=== PATIENT | male | born 1950 | race Caucasian/White ===

== ENCOUNTER → 2016-08-05 | Outpatient (CLI) | payer MEDICARE, OTHER ==
[~2016-08-05] MED LIST: AMLO5TAB2 PO; ASPI81TA11 PO; BENA20TA PO; FINA5TAB2 PO; HYDR-3516 PO; HYDR-3533 PO; LIPI40TA PO; POTA-245 PO; TAMS0.4C4 PO; TRIA37.53 PO
[2016-08-05 15:44] LABS: AUTOMATED NEUTROPHIL # 2.8 TH/MM3 (1.8-7.7); BASOPHIL % 0.9 % (0.0-2.0); EOSINOPHIL # 0.1 TH/MM3 (0-0.4); HEMATOCRIT 44.9 % (39.0-51.0); HEMO FLAGS DIFF FINAL; LYMPH % 23.5 % (9.0-44.0); LYMPHOCYTE # 1.1 TH/MM3 (1.0-4.8); MEAN CELL VOLUME 84.6 FL (80.0-100.0); MEAN CORPUSCULAR HEMOGLOBIN 28.7 PG (27.0-34.0); MONO % 14.5 % (0.0-8.0); NEUT % 59.1 % (16.0-70.0); PLATELET COUNT 209 TH/MM3 (150-450); RED BLOOD COUNT 5.31 MIL/MM3 (4.50-5.90); RED CELL DISTRIBUTION WIDTH 14.1 % (11.6-17.2); WHITE BLOOD COUNT 4.7 TH/MM3 (4.0-11.0)
[2016-08-05 15:49] LABS: BICARBONATE 32.5 MEQ/L (21.0-32.0); POTASSIUM 3.7 MEQ/L (3.5-5.1)
== END ==
LOC: PLAB 11:07
DX: R53.83 Other fatigue (principal)
CPT/HCPCS: 36415; 80048; 85025

== ENCOUNTER 2016-09-20 22:21 | Observation (INO) | payer MEDICARE, OTHER ==
[~2016-09-20] VITALS: Ht 180.3 cm; Wt 95.0 kg
[2016-09-20 22:24] VITALS: BP 183/85; PULSE 62; RESP 16; TEMP 98.1; O2SAT 95
--- NOTE | 2016-09-20 22:43 | RADRPT ---
EXAM DATE/TIME: 09/20/2016 22:35 [place] COMPARISON: No previous studies available for comparison. INDICATIONS : Chest pain. MEDICAL HISTORY : None. SURGICAL HISTORY : None. ENCOUNTER: Initial ACUITY: 1 day PAIN SCORE: 3/10 LOCATION: Bilateral chest FINDINGS: There is trace left base atelectasis. Lungs are otherwise clear. No pleural effusion. No pneumothorax . Heart size within normal limits. Thoracic aorta is tortuous. CONCLUSION: Trace left base atelectasis. Agustin Parra MD on September 20, 2016 at 22:41 Board Certified Radiologist. This report was verified electronically.
[2016-09-20 23:10] LABS: AUTOMATED NEUTROPHIL # 2.8 TH/MM3 (1.8-7.7); BASOPHIL # 0.1 TH/MM3 (0-0.2); BASOPHIL % 1.2 % (0.0-2.0); EOSINOPHIL # 0.2 TH/MM3 (0-0.4); EOSINOPHIL % 3.2 % (0.0-4.0); HEMATOCRIT 43.2 % (39.0-51.0); HEMO FLAGS DIFF FINAL; LYMPH % 31.8 % (9.0-44.0); LYMPHOCYTE # 1.8 TH/MM3 (1.0-4.8); MEAN CELL VOLUME 83.7 FL (80.0-100.0); MEAN CORPUSCULAR HEMOGLOBIN 28.9 PG (27.0-34.0); MEAN CORPUSCULAR HGB CONC 34.5 % (32.0-36.0); NEUT % 47.8 % (16.0-70.0); PLATELET COUNT 215 TH/MM3 (150-450); RED BLOOD COUNT 5.15 MIL/MM3 (4.50-5.90); RED CELL DISTRIBUTION WIDTH 13.7 % (11.6-17.2); WHITE BLOOD COUNT 5.8 TH/MM3 (4.0-11.0)
[2016-09-20] MEDS ORDERED: TAMS0.4C4 PO (23:21)
[2016-09-20] MEDS ORDERED: BENA20TA PO (23:21)
[2016-09-20] MEDS ORDERED: AMLO5TAB2 PO (23:21)
[2016-09-20] MEDS ORDERED: FINA5TAB2 PO (23:21)
[2016-09-20] MEDS ORDERED: TRIA37.53 PO (23:21)
[2016-09-20] MEDS ORDERED: POTA-245 PO (23:21)
[2016-09-20 23:24] LABS: CREATINE KINASE 122 U/L (39-308)
[2016-09-20 23:26] LABS: ANION GAP 8 MEQ/L (5-15); BICARBONATE 29.8 MEQ/L (21.0-32.0); BLOOD UREA NITROGEN 16 MG/DL (7-18); CHLORIDE 104 MEQ/L (98-107); GLOMERULAR FILTRATION RATE 73 ML/MIN (>89); POTASSIUM 3.3 MEQ/L (3.5-5.1); SODIUM (NA) 142 MEQ/L (136-145)
[2016-09-20 23:36] LABS: CKMB 1.5 NG/ML (0.5-3.6)
[2016-09-21] VITALS (7 sets, daily range): BP systolic 107–144; BP diastolic 60–84; PULSE 49–92; RESP 18–20; TEMP 97.4–98.1; O2SAT 96–98
--- NOTE | 2016-09-21 01:11 | PD ---
HPI Chief Complaint: Chest Pain Time Seen by Provider: 23:29 Travel History International Travel<30 days: No Contact w/Intl Traveler<30days: No Traveled to known affect area: No History of Present Illness HPI The patient is a 66 year old male who presents to the [facility] emergency department with a history of 7-10 days of generalized weakness, fatigue, shortness of breath with exertion, chest pressure. The patient reports that the pressure is all across his chest and 2 days ago he had more of a sharp pain in the left side of his chest. He reports that he is normally quite active and thought that it may be a muscle strain, therefore he applied ice to the area. This sharp pain resolved, however the pressure has continued. He reports that he's had intermittent lightheaded sensation with variability of his blood pressure when he checks it at home. He reports that he is on blood pressure medications. The patient also has a history of hypokalemia and generalized weakness associated with this, however he is on a potassium supplement. The patient reports that he's had a mild headache across his forehead, however he denies any nasal discharge, congestion, cough, rhinorrhea, or sore throat. The patient reports that he had a negative heart catheter for coronary artery disease in 2006, however he did have a pulmonary embolism related to the procedure. He did have an inferior vena cava ulcer placed because of it. The patient denies having a local primary care physician. The patient reports that he has been moving his bowels regularly. The patient denies any recent fevers, neck pain, abdominal pain, vomiting, diarrhea, urinary symptoms, or neurologic symptoms. [facility] Past Medical History Narrative Medical The patient's past medical history is significant for hypertension, hypokalemia , vitamin D deficiency, history of prostate cancer, history of bladder cancer in remission, history of pulmonary embolism after heart catheterization in 2006. Hx Anticoagulant Therapy: Yes (ASA) Cancer: Yes (BLADDER) Cardiovascular Problems: Yes (CATH>2006) Chemotherapy: Yes Hypertension: Yes Inguinal Hernia: Yes (WITH MESH) Tetanus Vaccination: > 5 Years Influenza Vaccination: No Past Surgical History Narrative Surgical The patient's past surgical history is significant for an inguinal hernia, cardiac cath complicated by subsequent pulmonary embolism, history of inferior vena cava filter placement, history of an appendectomy. The patient has a history of bladder cancer resection. Appendectomy: Yes Other Surgery: Yes (IVC FILTER ) Social History Alcohol Use: No Tobacco Use: No Substance Use: No Allergies-Medications (Allergen,Severity, Reaction): Coded Allergies: No Known Allergies (Unverified , 09/20/16) Reported Meds & Prescriptions Reported Meds & Active Scripts Active Reported Klor-Con M20 (Potassium Chloride Microencaps) 20 Meq Tab 20 Meq PO Q12HR Finasteride 5 Mg Tab 5 Mg PO DAILY Do not crush. Tamsulosin (Tamsulosin HCl) 0.4 Mg Cap 0.4 Mg PO HS Triamterene-Hydrochlorothiazide 37.5-25 Mg Cap 1 Cap PO DAILY Benazepril (Benazepril HCl) 20 Mg Tab 20 Mg PO DAILY Amlodipine (Amlodipine Besylate) 5 Mg Tab 5 Mg PO DAILY Review of Systems Except as stated in HPI: all other systems reviewed are Neg General / Constitutional: No: Fever Eyes: No: Visual changes HENT: Positive: Headaches, Lightheadedness Cardiovascular: Positive: Chest Pain or Discomfort, Dyspnea on exertion Respiratory: Positive: Shortness of Breath Gastrointestinal: Positive: Nausea, No: Vomiting, Diarrhea, Abdominal Pain, Constipation, Changes in Bowel Habits, Indigestion, Loss of Appetite Genitourinary: No: Dysuria Musculoskeletal: No: Pain Skin: No Rash Neurologic: Positive: Weakness (generalized weakness), Headache, No: Focal Abnormalities, Coordination Problem, Change in Mentation, Slurred Speech, Sensory Disturbance Psychiatric: No: Depression Endocrine: No: Polydipsia Hematologic/Lymphatic: No: Easy Bruising Physical Exam Narrative General: The patient is a well-developed well-nourished male in no acute distress. Head and Neck exam: Head is normocephalic atraumatic. Eyes: Pupils are equal round and reactive to light. Nose: Midline septum with pink mucous membranes Mouth: Dentition unremarkable. Moist mucus membranes. Posterior oropharynx is not erythematous. No tonsillar hypertrophy. Uvula midline. Airway patent. Neck: No palpable lymphadenopathy. No nuchal rigidity. No thyromegaly. Cardiovascular: Regular sounding bradycardia in the 40s without murmurs, gallops, or rubs. No pulse deficit to the extremities and simultaneous auscultation and palpation of his radial artery. Lungs: Clear to auscultation bilaterally. No wheezes, rhonchi, or rales. Abdomen: Soft, without tenderness to palpation in all 4 quadrants of the abdomen. No guarding, rebound, or rigidity. Normal bowel sounds are audible. Extremities: No clubbing, cyanosis, or edema. 2+ pulses in all 4 extremities. No calf tenderness on palpation. Back: No spinous process tenderness to palpation. No costovertebral angle tenderness to palpation. Neurologic Exam: Grossly nonfocal. Skin Exam: No rash noted. Intact skin that is warm and dry. Data Data Last Documented VS Vital Signs Date Time Temp Pulse Resp B/P Pulse Ox O2 Delivery O2 Flow Rate FiO2 09/21/16 01:34 82 18 144/75 98 Room Air 09/20/16 22:24 98.1 Orders Electrocardiogram (09/20/16 22:23) Complete Blood Count With Diff (09/20/16 22:23) Basic Metabolic Panel (Bmp) (09/20/16 22:23) Ckmb (Isoenzyme) Profile (09/20/16 22:23) Troponin I (09/20/16 22:23) Chest, Single Ap (09/20/16 22:23) Iv Access Insert/Monitor (09/20/16 22:23) CKMB (09/20/16 22:50) CKMB% (09/20/16 22:50) Potassium Chloride Eff (K-Lyte Cl Eff) (09/21/16 01:15) Aspirin Chew (Aspirin Chew) (09/21/16 01:15) Nitroglycerin 2% Oint (Nitroglycerin 2% (09/21/16 01:15) Nitroglycerin Sl (Nitrostat Sl) (09/21/16 01:15) B-Type Natriuretic Peptide (09/21/16 01:15) Hepatic Functional Panel (09/21/16 01:15) Lipase (09/21/16 01:15) D-Dimer (09/21/16 01:15) Magnesium (Mg) (09/21/16 01:15) Sodium Chlorid 0.9% 500 Ml Inj (Ns 500 M (09/21/16 01:15) Amlodipine (Norvasc) (09/21/16 09:00) Lisinopril (Prinivil) (09/21/16 09:00) Finasteride (Proscar) (09/21/16 09:00) Potassium Chloride (Kcl) (09/21/16 09:00) Tamsulosin (Flomax) (09/21/16 21:00) Triamterene-Hctz 37.5-25 Mg (Dyazide 37. (09/21/16 09:00) Admit Order (Ed Use Only) (09/21/16 01:37) Place In Observation (09/21/16 ) Vital Signs (Adult) Q4H (09/21/16 01:37) Activity Oob With Assistance (09/21/16 01:37) Cinder Man / Telemetry .CONTINUOUS (09/21/16 01:37) Sodium Chloride 0.9% Flush (Ns Flush) (09/21/16 01:45) Sodium Chloride 0.9% Flush (Ns Flush) (09/21/16 09:00) Creatine Kinase (Cpk) (09/21/16 05:00) Creatine Kinase (Cpk) (09/21/16 11:00) Troponin I (09/21/16 05:00) Troponin I (09/21/16 11:00) Electrocardiogram (09/21/16 05:00) Electrocardiogram (09/21/16 11:00) Naloxone Inj (Narcan Inj) (09/21/16 01:45) Labs Laboratory Tests Test 09/20/16 09/21/16 22:50 01:20 White Blood Count 5.8 TH/MM3 Red Blood Count 5.15 MIL/MM3 Hemoglobin 14.9 GM/DL Hematocrit 43.2 % Mean Corpuscular Volume 83.7 FL Mean Corpuscular Hemoglobin 28.9 PG Mean Corpuscular Hemoglobin 34.5 % Concent Red Cell Distribution Width 13.7 % Platelet Count 215 TH/MM3 Mean Platelet Volume 8.2 FL Neutrophils (%) (Auto) 47.8 % Lymphocytes (%) (Auto) 31.8 % Monocytes (%) (Auto) 16.0 % Eosinophils (%) (Auto) 3.2 % Basophils (%) (Auto) 1.2 % Neutrophils # (Auto) 2.8 TH/MM3 Lymphocytes # (Auto) 1.8 TH/MM3 Monocytes # (Auto) 0.9 TH/MM3 Eosinophils # (Auto) 0.2 TH/MM3 Basophils # (Auto) 0.1 TH/MM3 CBC Comment DIFF FINAL Differential Comment Sodium Level 142 MEQ/L Potassium Level 3.3 MEQ/L Chloride Level 104 MEQ/L Carbon Dioxide Level 29.8 MEQ/L Anion Gap 8 MEQ/L Blood Urea Nitrogen 16 MG/DL Creatinine 1.02 MG/DL Estimat Glomerular Filtration 73 ML/MIN Rate Random Glucose 100 MG/DL Calcium Level 8.5 MG/DL Total Creatine Kinase 122 U/L Creatine Kinase MB 1.5 NG/ML Troponin I LESS THAN 0.02 NG/ML D-Dimer Quantitative (PE/DVT) 0.33 MG/L FEU Magnesium Level 2.0 MG/DL Total Bilirubin 1.0 MG/DL Direct Bilirubin 0.3 MG/DL Indirect Bilirubin 0.7 MG/DL Aspartate Amino Transf 15 U/L (AST/SGOT) Alanine Aminotransferase 25 U/L (ALT/SGPT) Alkaline Phosphatase 50 U/L B-Type Natriuretic Peptide 26 PG/ML Total Protein 6.3 GM/DL Albumin 3.5 GM/DL Lipase 196 U/L MDM Medical Decision Making Medical Screen Exam Complete: Yes Emergency Medical Condition: Yes Medical Record Reviewed: Yes Interpretation(s) Vital Signs Date Time Temp Pulse Resp B/P Pulse Ox O2 Delivery O2 Flow Rate FiO2 09/21/16 01:34 82 18 144/75 98 Room Air 09/20/16 23:24 84 Room Air 09/20/16 22:24 98.1 62 16 183/85 95 Differential Diagnosis Sick sinus syndrome, versus electrolyte abnormality, versus acute coronary syndrome, versus viral syndrome, versus new-onset congestive heart failure Narrative Course During the course of the patients emergency department visit, the patients history, examination, and differential diagnosis were reviewed with the patient. The patient had IV access obtained and blood work sent for analysis. The patient was placed on a rn cardiac with oximetry and blood pressure monitoring. An EKG was done on arrival. The patient's EKG shows a sinus rhythm , borderline left axis deviation, moderate intraventricular conduction delay with a QRS duration of 112 ms, QTC 409 ms, no acute ST segment elevation is noted, no acute ST segment depression. The patient was provided 162 mg of aspirin by mouth. The patient was given sublingual nitroglycerin 1, nitroglycerin 1 inch the chest wall. The patients laboratory studies were reviewed and remarkable for a d-dimer that was negative, decreasing the likelihood of pulmonary embolism in this patient with no other significant risk factors. CBC is remarkable for a monocytosis, CMP is remarkable for potassium of 3.3, lipase 196, cardiac enzymes negative, PT PTT unremarkable. Radiology studies were reviewed and remarkable for a chest x-ray that shows no acute abnormality. The patient will be admitted to the hospital for continued evaluation and treatment of suspected symptomatic bradycardia and chest pain rule out myocardial infarction The patients results were discussed with the patient, including the plan of care. I explained that further testing and/ or monitoring is indicated based on the patients history, examination, and/ or laboratory findings. Therefore, I recommended admission for additional evaluation. The patient expressed understanding and was agreeable with this plan. The patient was admitted to the hospital in stable condition and [facility] Physician Communication Physician Communication The patient's case was discussed with Dr. Carreno who did agree to admit the patient for further evaluation and treatment at this time Diagnosis Primary Impression: Bradycardia Additional Impressions: Light headedness Chest pain, rule out acute myocardial infarction Admitting Information Admitting Physician Requests: Admit Elen Phoenix MD Sep 21, 2016 01:11
[2016-09-21] MEDS ORDERED: POTASSIUM CHLORIDE 25 MEQ EFFERVESCENT TAB PO ONE (01:15)
[2016-09-21] MEDS ORDERED: NITROGLYCERIN 2% OINT 1 GM PACKET TOPICAL ONE (01:15)
[2016-09-21] MEDS ORDERED: NITROGLYCERIN 0.4 MG SL 25 TABS/BTL SL ONE (01:15)
[2016-09-21] MEDS ORDERED: SODIUM CHLORID 0.9% 500 ML INJ 500 ML IV ONE (01:15)
[2016-09-21] MEDS ORDERED: ASPIRIN 81 MG CHEW TAB CHEW ONE (01:15)
[2016-09-21] MEDS ORDERED: NALOXONE HCL 0.4 MG/ML AMP IV PRN (01:45)
[2016-09-21] MEDS ORDERED: SODIUM CHLORIDE 0.9% FLUSH 5 ML FLUSH FLUSH PRN (01:45)
[2016-09-21 01:57] LABS: INDIRECT BILIRUBIN 0.7 MG/DL (0.0-0.8)
[2016-09-21 05:41] LABS: CREATINE KINASE 78 U/L (39-308)
--- NOTE | 2016-09-21 07:56 | HHI.HP ---
HPI Service [facility] Primary Care Physician Non-Staff Admission Diagnosis Bradycardia, CP RO MT Diagnoses: Chief Complaint: fatigue, chest pain, shortness of breath Travel History International Travel<30 Days: No Contact w/Intl Traveler <30 Da: No Traveled to Known Affected Are: No History of Present Illness 66-year-old male with history of Hypertension, Hypokalemia, Vitamin D Deficiency , Prostate Cancer, Bladder Cancer in remission, Pulmonary Embolism 2006, presents with a 7-10 day history of generalized weakness, fatigue, shortness of breath, dyspnea on exertion, and chest pressure. The patient's main complaint is feeling fatigued [id number] now. He has been taking his blood pressure at home which has been significantly elevated at times; he states his normal BP is around 130s/80s. He's also been having episodes of chest pain described as a tight band across his anterior chest with occasional sharp pains, he is not the best historian. He has been icing his chest, and had some mild relief of his pains. He also reports "flashes" of lightheadedness, nausea, and mild intermittent headaches; not always associated with the chest pains. Denies vomiting or diaphoresis. He also reports shortness of breath, states he has no problems with deep inspiration however feels he is just not getting enough air. Yesterday when the patient would walk only 50feet, he felt very fatigued and had to sit down to rest. 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 Since his arrival to the ER, he has been given aspirin 162mg and nitro with moderate relief of his symptoms. Denies any current chest pains. He has been bradycardic on telemetry, HR into the upper 30s -40s. The patient does not take any beta blockers. The patient had a cardiac catheterization done in [place] 10years ago which was reportedly normal, no CAD, however he then developed a pulmonary embolism post cath and was on Coumadin for 6months. Review of Systems Constitutional: COMPLAINS OF: Fatigue, DENIES: Diaphoretic episodes, Fever, Chills, Dizziness Endocrine: DENIES: Polydipsia, Polyuria, Polyphagia Eyes: DENIES: Blurred vision, Diplopia, Double Vision Ears, nose, mouth, throat: DENIES: Throat pain, Running Nose, Odynophagia Respiratory: COMPLAINS OF: Shortness of breath, DENIES: Cough, Wheezing, Sputum production Cardiovascular: COMPLAINS OF: Chest pain, Dyspnea on Exertion, DENIES: Palpitations, Syncope, Lower Extremity Edema, Orthopnea Gastrointestinal: COMPLAINS OF: Nausea, DENIES: Abdominal pain, Constipation, Diarrhea, Vomiting Genitourinary: DENIES: Urinary frequency, Urgency, Dysuria Musculoskeletal: DENIES: Joint pain, Back pain, Neck pain Integumentary: DENIES: Pruritus, Rash Hematologic/lymphatic: DENIES: Bruising, Lymphadenopathy Immunologic/allergic: DENIES: Eczema, Urticaria Neurologic: COMPLAINS OF: Headache, DENIES: Abnormal gait, Localized weakness , Paresthesias Psychiatric: DENIES: Anxiety, Depression Past Family Social History Past Medical History Hypertension Hypokalemia Vitamin D Deficiency Prostate Cancer Bladder Cancer in remission Pulmonary Embolism after heart cath 2006 Past Surgical History Hernia repair with mesh IVC filter placement 2006 Appendectomy Bladder cancer resection Left ear surgery 50years ago Reported Medications Klor-Con M20 (Potassium Chloride Microencaps) 20 Meq Tab 20 Meq PO Q12HR Finasteride 5 Mg Tab 5 Mg PO DAILY Do not crush. Tamsulosin (Tamsulosin HCl) 0.4 Mg Cap 0.4 Mg PO HS Triamterene-Hydrochlorothiazide 37.5-25 Mg Cap 1 Cap PO DAILY Benazepril (Benazepril HCl) 20 Mg Tab 20 Mg PO DAILY Amlodipine (Amlodipine Besylate) 5 Mg Tab 5 Mg PO DAILY Aspirin 81mg daily Occasional use of OTC Motrin, Aleve, Full strength aspirin, for pain relief Allergies: Coded Allergies: No Known Allergies (Unverified , 09/20/16) Active Ordered Medications Current Medications Medications (Trade) Dose Ordered Sig/Silvia Route Start Time Stop Time Status Last Admin (Norvasc) 5 mg DAILY PO 09/21/16 09:00 (Prinivil) 20 mg DAILY PO 09/21/16 09:00 (Proscar) 5 mg DAILY PO 09/21/16 09:00 (KCl) 20 meq Q12HR PO 09/21/16 09:00 (Flomax) 0.4 mg HS PO 09/21/16 21:00 (Dyazide 37.5-25 Mg) 1 cap DAILY PO 09/21/16 09:00 (NS Flush) 2 ml UNSCH PRN FLUSH 09/21/16 01:45 (NS Flush) 2 ml BID FLUSH 09/21/16 09:00 (Narcan Inj) 0.4 mg UNSCH PRN IV 09/21/16 01:45 (Flu (Quadrivalent) Vaccine Inj) 0.5 ml ONCE ONCE IM 09/22/16 09:00 09/22/16 09:01 Family History Mother with CHF Father with stroke Both parents in the 90s Social History Denies any tobacco use Social drinker, maybe 2 alcoholic beverages a month 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 Physical Exam Vital Signs Vital Signs Date Time Temp Pulse Resp B/P Pulse Ox O2 Delivery O2 Flow Rate FiO2 09/21/16 05:35 98.1 92 20 136/75 96 09/21/16 03:49 49 09/21/16 01:34 82 18 144/75 98 Room Air 09/20/16 23:24 84 Room Air 09/20/16 22:24 98.1 62 16 183/85 95 Physical Exam GENERAL: Well-nourished, well-developed pleasant male patient in [facility]. SKIN: Warm and dry. No rash. HEAD: Normocephalic. Atraumatic. EYES: Pupils equal and round. No scleral icterus. No injection or drainage. ENT: No nasal bleeding or discharge. Mucous membranes pink and moist. NECK: Supple. Trachea midline. CARDIOVASCULAR: Bradycardic, Regular rhythm. S1, S2 noted. No murmur appreciated. RESPIRATORY: No accessory muscle use. Clear to auscultation. Breath sounds equal bilaterally. GASTROINTESTINAL: Abdomen soft, non-tender, nondistended. Normoactive bowel sounds x4. MUSCULOSKELETAL: No obvious deformities. Extremities without clubbing, cyanosis , or edema. NEUROLOGICAL: Awake and alert. No obvious cranial nerve deficits. Motor grossly within normal limits. 5/5 muscle strength in bilateral upper and lower extremities. Normal speech. PSYCHIATRIC: Appropriate mood and affect; insight and judgment normal. Laboratory Laboratory Tests Test 09/20/16 09/21/16 09/21/16 22:50 01:20 04:52 White Blood Count 5.8 Red Blood Count 5.15 Hemoglobin 14.9 Hematocrit 43.2 Mean Corpuscular Volume 83.7 Mean Corpuscular Hemoglobin 28.9 Mean Corpuscular Hemoglobin 34.5 Concent Red Cell Distribution Width 13.7 Platelet Count 215 Mean Platelet Volume 8.2 Neutrophils (%) (Auto) 47.8 Lymphocytes (%) (Auto) 31.8 Monocytes (%) (Auto) 16.0 Eosinophils (%) (Auto) 3.2 Basophils (%) (Auto) 1.2 Neutrophils # (Auto) 2.8 Lymphocytes # (Auto) 1.8 Monocytes # (Auto) 0.9 Eosinophils # (Auto) 0.2 Basophils # (Auto) 0.1 CBC Comment DIFF FINAL Differential Comment Sodium Level 142 Potassium Level 3.3 Chloride Level 104 Carbon Dioxide Level 29.8 Anion Gap 8 Blood Urea Nitrogen 16 Creatinine 1.02 Estimat Glomerular Filtration 73 Rate Random Glucose 100 Calcium Level 8.5 Total Creatine Kinase 122 78 Creatine Kinase MB 1.5 Troponin I LESS THAN 0.02 LESS THAN 0.02 D-Dimer Quantitative (PE/DVT) 0.33 Magnesium Level 2.0 Total Bilirubin 1.0 Direct Bilirubin 0.3 Indirect Bilirubin 0.7 Aspartate Amino Transf 15 (AST/SGOT) Alanine Aminotransferase 25 (ALT/SGPT) Alkaline Phosphatase 50 B-Type Natriuretic Peptide 26 Total Protein 6.3 Albumin 3.5 Lipase 196 Result Diagram: 09/20/16224909/20/162249 Imaging Last Impressions Chest X-Ray 09/20/162222 Signed Impressions: Service Date/Time: Tuesday, September 20, 2016 22:35 - CONCLUSION: Trace left base atelectasis. Agustin Parra MD Assessment and Plan Problem List: (1) Symptomatic bradycardia ICD Code: R00.1 Status: Acute (2) Unstable angina ICD Code: I20.0 Status: Acute Assessment and Plan 66-year-old male with history of Hypertension, Hypokalemia, Vitamin D Deficiency , Prostate Cancer, Bladder Cancer in remission, Pulmonary Embolism 2006, presents with a 7-10 day history of generalized weakness, fatigue, shortness of breath, dyspnea on exertion, and chest pressure. Fatigue: suspect related to symptomatic bradycardia and unstable angina. Given IVF bolus in the ER. CBC unremarkable. CMP with K 3.3, given KCl replacement. Check TSH. CXR unremarkable, images reviewed. Symptomatic Bradycardia: HR into upper 30s-40s on telemetry. Patient is not on BB. Check TSH. Monitor on telemetry. Consult cardiology. Atypical Chest Pain, possible Unstable Angina: no hx of CAD, cardiac cath 10years ago in [place] reportedly clean. Patient had relief of symptoms with Nitro/ Aspirin in the ED. CXR unremarkable, images reviewed. D-dimer negative.Rule out ACS, initial 2 sets of cardiac enzymes negative, EKG without acute ST changes. Check 3rd set of enzymes/EKG. Continue aspirin 81mg daily, nitro SL prn, IV morphine prn. Cannot have BB with bradycardia. Continue ACEi. Start statin, check lipid panel in am. Monitor on tele. Started heparin drip. Consult cardiology, recommended Nuclear Stress Test and Echo. Accelerated Hypertension: BP 183/85 upon arrival. Continue patient's ACEi, Norvasc, triamterene, HCTZ. Monitor BP and adjust antihypertensives as needed. BPH: hx of prostate cancer. Chronic. Continue patient's Proscar and Flomax. DVT Prophylaxis: on heparin drip. Written by Selam Linares, acting as scribe for Dr. Thrasher on 09/21/16 at 08:58 The documentation accurately reflects the work performed [id number] by me on at 08:58. Code Status Full Discussed Condition With Patient, CDU RN Selam Linares PA-C Sep 21, 2016 07:56 Anthony Thrasher DO Sep 21, 2016 18:08
[2016-09-21] MEDS ORDERED: HEPARIN SODIUM - IV 10,000 UNITS/10 ML VIAL IV ONE (09:15)
[2016-09-21] MEDS ORDERED: HEPARIN-D5W INJ 250 ML IV SCH (09:15)
[2016-09-21] MEDS ORDERED: MORPHINE SULFATE 4 MG/ML INJ IV PUSH PRN (10:00)
[2016-09-21] MEDS ORDERED: NITROGLYCERIN 0.4 MG SL 25 TABS/BTL SL PRN (10:00)
[2016-09-21] MEDS: POTASSIUM CHLORIDE 20 MEQ CONTROLLED RELEASE TAB PO SCH ×2 (10:20→21:06)
[2016-09-21] MEDS: TRIAMTERENE/HCTZ 37.5 MG/25 MG CAP PO SCH (10:20)
[2016-09-21] MEDS: LISINOPRIL 20 MG TAB PO SCH (10:21)
[2016-09-21] MEDS: amLODIPine BESYLATE 5 MG TAB PO SCH (10:21)
[2016-09-21] MEDS: SODIUM CHLORIDE 0.9% FLUSH 5 ML FLUSH FLUSH SCH ×2 (10:22→21:06)
[2016-09-21] MEDS: FINASTERIDE 5 MG TAB PO SCH (10:22)
[2016-09-21] MEDS: ATORVASTATIN 80 MG TAB PO SCH (10:24)
[2016-09-21 11:12] LABS: MEAN CELL VOLUME 83.4 FL (80.0-100.0); MEAN CORPUSCULAR HEMOGLOBIN 29.6 PG (27.0-34.0); MEAN CORPUSCULAR HGB CONC 35.5 % (32.0-36.0); PLATELET COUNT 203 TH/MM3 (150-450); RED BLOOD COUNT 4.79 MIL/MM3 (4.50-5.90); RED CELL DISTRIBUTION WIDTH 13.8 % (11.6-17.2); REVIEW FLAG FINAL; WHITE BLOOD COUNT 5.8 TH/MM3 (4.0-11.0)
[2016-09-21 11:19] LABS: APTT (PATIENT) 57.8 SEC (24.3-30.1)
[2016-09-21 11:45] LABS: CREATINE KINASE 72 U/L (39-308)
[2016-09-21] MEDS ORDERED: ACETAMINOPHEN/HYDROcodone 325 MG/5 MG TAB PO PRN (12:30)
[2016-09-21] MEDS ORDERED: ACETAMINOPHEN 325 MG TAB PO PRN (12:30)
--- NOTE | 2016-09-21 12:32 | MB ---
cc: ALEKSANDRA RANDOLPH DATE OF CONSULTATION 09/21/2016 REASON FOR CONSULTATION Shortness of breath, chest pain. HISTORY OF PRESENT ILLNESS This is a 66-year-old gentleman who has a history of hypertension, prostate cancer, prior pulmonary embolism status post IVC filter back in 2006. He has been in his usual state of health up until the past month or so. He has been experiencing generalized weakness, fatigue and shortness of breath both with and without exertion. He has also describes some intermittent chest pressure with and without exertion. It is somewhat relieved with deep palpation. He states his blood pressure has also been elevated more recently. He has not had any syncopal episodes. He was and brought into observation. Telemetry did show some sinus bradycardia overnight. He was asymptomatic with that. He states that recently with walking about 50 feet, he becomes fatigued and short of breath. He has no weight gain or edema. PAST MEDICAL HISTORY 1. Hypertension 2. Hypokalemia 3. Vitamin D deficiency 4. Prostate cancer 5. Bladder cancer 6. Pulmonary embolism 7. Prior cardiac catheterization 10 years ago without obstruction 8. IVC filter 2006. MEDICATIONS 1. Finasteride 2. Tamsulosin 3. Triamterene 4. Benazepril 5. Cipro 6. Amlodipine 7. Aspirin ALLERGIES NO KNOWN DRUG ALLERGIES. REVIEW OF SYSTEMS A 12-point this was performed and is negative unless otherwise as noted in the history of present illness. PHYSICAL EXAMINATION Mother had CHF, father had stroke. SOCIAL HISTORY Denies any tobacco or drug use. Does report about two alcoholic drinks a month. He is a transport pilot. REVIEW OF SYSTEMS 12-point this was performed and is negative unless otherwise as noted in the history of present illness. PHYSICAL EXAMINATION VITAL SIGNS: Temperature 97, heart rate anywhere from 49-92 beats per minute, blood pressure 107/60 mmHg. GENERAL: Alert and oriented x3 in no acute distress. HEENT: Exam shows pupils reactive to light and accommodation. Extraocular movements are intact. NECK: No jugular venous distension. No thyromegaly or lymphadenopathy. No carotid bruits. LUNGS: Clear to auscultation bilaterally. CARDIOVASCULAR: Regular rate and rhythm without murmurs, rubs or gallops. ABDOMEN: Exam is nontender and nondistended. Good bowel sounds. No hepatosplenomegaly. EXTREMITIES: No clubbing, cyanosis or edema. Good peripheral pulses. NEUROLOGIC: Cranial nerves intact. Motor and sensory grossly intact. LABORATORY DATA WBC 5.8, hemoglobin 14.9, platelet count 215. Sodium 142, potassium 3.3, BUN 16, creatinine 1.02, troponins 0.062 x two. TSH 1.2. ASSESSMENT 1. Chest pain 2. Shortness of breath 3. Bradycardia 4. History pulmonary embolism. PLAN The patient's chest pain is rather atypical. He has a prior history of coronary angiogram about 10 years ago which was reportedly normal. We will get a stress test here today. For his shortness of breath, we will evaluate with a 2-D echocardiogram although he has no edema and his lungs are clear. His bradycardia, reviewed of the telemetry shows sinus kellee primarily at night, probably just increased vagal tone. He was not symptomatic with it. We can get him up and ambulate and see if he augments his heart rate appropriately. If his workup is totally negative, he can probably just have an outpatient Holter monitor and see if we can associate any symptoms of lightheadedness or fatigue with his bradycardia. He has no high-grade conduction disease. I would avoid beta blockers though. If his stress test and echo are rather unremarkable, he could probably have the remainder of his workup as an outpatient. MD PEYTON Landon/LIZETH /10:58 AM /12:22 PM
[2016-09-21] MEDS ORDERED: REGADENOSON INJ 0.4 MG/5 ML SYR ONE (13:22)
[2016-09-21] MEDS ORDERED: HEPARIN SODIUM - IV 10,000 UNITS/10 ML VIAL IV PRN ×2 (15:15)
--- NOTE | 2016-09-21 16:28 | RADRPT ---
EXAM DATE/TIME: 09/21/2016 12:49 [facility] COMPARISON: No previous studies available for comparison. INDICATIONS : Chest pain with dyspnea. Angina. DOSE: 25.4 mCi Tc99m Myoview at stress. 8.1 mCi Tc99m Myoview at rest. 0.4 mg Lexiscan STRESS SYMPTOMS: Anxiety and lightheaded. EJECTION FRACTION: 67% MEDICAL HISTORY : Hypertension. Carcinoma, bladder. SURGICAL HISTORY : Inguinal hernia repair. IVC Filter placement. Appendectomy. ENCOUNTER: Initial ACUITY: 1 day PAIN SCALE: 5/10 LOCATION: Substernal chest TECHNIQUE: The patient underwent pharmacologic stress with infusion of prescribed dose. Continuous ECG tracing was monitored during stress. Gated SPECT imaging was performed after stress and conventional SPECT i maging was performed at rest. The examination was performed on a SPECT/CT scanner, both attenuation and non-corrected datasets were reviewed. FINDINGS: DISTRIBUTION: The maximum perfused segment at stress is in the anterolateral wall. PERFUSION STUDY: No reversible perfusion defects to suggest ischemia. Next defects within the inferior wall and infero septal mcconnell likely related to old infarcts. GATED STUDY: There is intact wall motion and thickening without hypokinetic or dyskinetic segments. CONCLUSION: 1. No areas of reversibility to suggest ischemia. 2. Matched defects within the inferior and inferoseptal mcconnell likely old infarcts. 3. Normal ejection fraction. RISK CATEGORY: Intermediate (1-3% Annual Mortality Rate) Andreas Regan MD on September 21, 2016 at 16:25 Board Certified Radiologist. This report was verified electronically.
--- NOTE | 2016-09-21 16:53 | EC ---
Study Study Date:09/21/2016 STUDY CONCLUSIONS SUMMARY - Left ventricle: The cavity size was normal. Wall thickness was increased in a pattern of mild LVH. Systolic function was probably normal. The estimated ejection fraction was in the range of 55% to 60%. Wall motion was normal; there were no regional wall motion abnormalities. Features are consistent with a pseudonormal left ventricular filling pattern, with concomitant abnormal relaxation and increased filling pressure (grade 2 diastolic dysfunction). - Aortic valve: Valve area: 3.14cm^2 (Vmax). If LV function is below 40, please consider prescribing an ACEI or ARB or document rationale for non-use. PROCEDURE DATA STUDY STATUS: Elective. Procedure: Transthoracic echocardiography. Image quality was good. Scanning was performed from the parasternal, apical, and subcostal acoustic windows. Study completion: The patient tolerated the procedure well. Transthoracic echocardiography. M-mode, complete 2D, complete spectral Doppler, and color Doppler. Height: Height: 71in. Weight: Weight: 208.6lb. Body mass index: BMI: 29.1kg/m^2. Body surface area: BSA: 2.15m^2. Patient status: Inpatient. CARDIAC ANATOMY LEFT VENTRICLE: Not well visualized. The cavity size was normal. Wall thickness was increased in a pattern of mild LVH. Systolic function was probably normal. The estimated ejection fraction was in the range of 55% to 60%. Wall motion was normal; there were no regional wall motion abnormalities. Features are consistent with a pseudonormal left ventricular filling pattern, with concomitant abnormal relaxation and increased filling pressure (grade 2 diastolic dysfunction). AORTIC VALVE: Trileaflet; normal thickness leaflets. Doppler: Transvalvular velocity was within the normal range. There was no stenosis. No regurgitation. Valve area: 3.14cm^2 (Vmax). Indexed valve area: 1.46cm^2/m^2 (Vmax). AORTA: Aortic root: The aortic root was normal in size. MITRAL VALVE: Structurally normal valve. Doppler: Transvalvular velocity was within the normal range. There was no evidence for stenosis. No regurgitation. LEFT ATRIUM: The atrium was normal in size. RIGHT VENTRICLE: The cavity size was normal. Wall thickness was normal. PULMONIC VALVE: Doppler: Transvalvular velocity was within the normal range. There was no evidence for stenosis. No regurgitation. TRICUSPID VALVE: Structurally normal valve. Doppler: Transvalvular velocity was within the normal range. No regurgitation. PULMONARY ARTERY: The main pulmonary artery was normal-sized. Systolic pressure was within the normal range. RIGHT ATRIUM: The atrium was normal in size. PERICARDIUM: There was no pericardial effusion. SYSTEMIC VEINS: Inferior vena cava: The vessel was normal in size. Patient weight: 208.6lb _Ejection fraction:_ 65-75% _Fractional shortening:_ 32% up to 5Kg 5-11.5Kg 11.6-22.9Kg 23-45Kg 45-57Kg Aortic Root 7-13 <17 13-22 17-27 17-27 LA diam 6-13 <23 24-38 33-47 37-40 RVID 10-17 7-15 7-15 7-18 8-17 LVIDd 12-22 <32 24-38 33-47 37-40 LVPW 2-4 3-6 5-7 6-8 7-8 IVS 2-4 3-6 5-7 6-8 7-8 BASIC MEASUREMENTS ADULT NORMAL Left ventricle LV internal dimension, ED, chordal 47.6 mm 43-52 level, PLAX LV internal dimension, ES, chordal *40.3 mm 23-38 level, PLAX Fractional shortening, chordal level, *15 % >29 PLAX LV posterior wall thickness, ED 7.86 mm IVS/LVPW ratio, ED 0.98 <1.3 Ventricular septum Septal thickness, ED 7.71 mm Aortic valve Leaflet separation 18 mm 15-26 BASIC MEASUREMENTS ADULT NORMAL Aortic valve Leaflet separation 18 mm 15-26 Aorta Root diameter, ED 25 mm 20-37 Left atrium Anterior-posterior dimension, ES 33 mm 19-40 Anterior-posterior dimension index, ES 1.53 cm/m^2 <2.2 LA/aortic root ratio 1.32 DOPPLER MEASUREMENTS ADULT NORMAL Aortic valve Peak velocity, S 110 cm/s Valve area, Vmax 3.14 cm^2 Valve area index, Vmax 1.46 cm^2/m^2 Mitral valve Peak E-wave velocity 68.6 cm/s Peak A-wave velocity 58.2 cm/s Deceleration time *236 ms 150-230 Peak E/A ratio 1.2 LEGEND: Mean values are shown as u=mean value. Asterisk (*) hinton values outside specified normal range. Prepared and signed by Jimenez Lou [id number]
--- NOTE | 2016-09-21 17:05 | EKG ---
Date Performed: 09/21/2016 Time Performed: 05:55:26 PTAGE: 66 years EKG: SINUS BRADYCARDIA Since previous tracing, no significant change noted BORDERLINE ECG PREVIOUS TRACING : 09/20/2016 22.40 DOCTOR: Michael Amaro Interpretating Date/Time 09/21/2016 17:04:18
--- NOTE | 2016-09-21 17:05 | EKG ---
Date Performed: 09/20/2016 Time Performed: 22:40:08 PTAGE: 66 years EKG: Sinus rhythm BORDERLINE LEFT AXIS DEVIATION MODERATE INTRAVENTRICULAR CONDUCTION DELAY BORDERLINE ECG NO PREVIOUS TRACING DOCTOR: Michael Amaro Interpretating Date/Time 09/21/2016 17:03:58
[2016-09-21] MEDS ORDERED: TAMSULOSIN HCL 0.4 MG CAP PO SCH (21:00)
[2016-09-22 00:57] VITALS: PULSE 60
[2016-09-22 04:00] VITALS: BP 127/75; PULSE 61; RESP 18; TEMP 97.1
[2016-09-22 05:27] LABS: AUTOMATED NEUTROPHIL # 3.3 TH/MM3 (1.8-7.7); BASOPHIL % 0.8 % (0.0-2.0); EOSINOPHIL # 0.2 TH/MM3 (0-0.4); EOSINOPHIL % 2.9 % (0.0-4.0); HEMATOCRIT 41.8 % (39.0-51.0); HEMO FLAGS DIFF FINAL; LYMPH % 28.7 % (9.0-44.0); LYMPHOCYTE # 1.8 TH/MM3 (1.0-4.8); MEAN CELL VOLUME 83.8 FL (80.0-100.0); MEAN CORPUSCULAR HEMOGLOBIN 28.9 PG (27.0-34.0); MEAN CORPUSCULAR HGB CONC 34.5 % (32.0-36.0); MONO % 15.3 % (0.0-8.0); NEUT % 52.3 % (16.0-70.0); PLATELET COUNT 202 TH/MM3 (150-450); RED BLOOD COUNT 4.99 MIL/MM3 (4.50-5.90); RED CELL DISTRIBUTION WIDTH 13.7 % (11.6-17.2); WHITE BLOOD COUNT 6.3 TH/MM3 (4.0-11.0)
[2016-09-22 05:55] LABS: BICARBONATE 31.4 MEQ/L (21.0-32.0); HDL CHOLESTEROL 54.8 MG/DL (40.0-60.0); MAGNESIUM 2.1 MG/DL (1.5-2.5); POTASSIUM 3.2 MEQ/L (3.5-5.1)
[2016-09-22 07:29] VITALS: BP 134/74; PULSE 57; RESP 19; TEMP 97.7; O2SAT 94
--- NOTE | 2016-09-22 08:15 | PD.CARD.PN ---
Subjective Subjective Remarks no events sleeping comfortably Objective Medications Active Medications Acetaminophen (Tylenol) 650 mg Q6H PRN PO; Start 09/21/16 at 12:30 Acetaminophen/ Hydrocodone Bitart ([place] 5-325 Mg) 1 tab Q4H PRN PO; Start at 12:30 Amlodipine Besylate (Norvasc) 5 mg DAILY PO Last administered on 09/21/16 10:21 ; Admin Dose 5 MG; Start 09/21/16 at 09:00 Aspirin (Ecotrin Ec) 81 mg DAILY PO; Start 09/22/16 at 09:00 Atorvastatin Calcium (Lipitor) 80 mg DAILY PO Last administered on 09/21/16 10: 24; Admin Dose 80 MG; Start 09/21/16 at 09:15 Finasteride (Proscar) 5 mg DAILY PO; Start 09/21/16 at 09:00 Heparin Sodium (Porcine) (Heparin Inj) 4,000 units ONCE ONCE IV Last administered on 09/21/16 10:19; Admin Dose 4,000 UNITS; Start 09/21/16 at 09:15 ; Stop 09/21/16 at 09:25; Status DC Heparin Sodium (Porcine) (Heparin Inj) 5,000 units UNSCH PRN IV; Start at 15:15; Stop 09/21/16 at 15:15; Status DC Heparin Sodium (Porcine) 2500 units 2,500 units UNSCH PRN IV; Start 09/21/16 at 15:15; Stop 09/21/16 at 15:15; Status DC Heparin Sodium/ Dextrose (Heparin-D5W Inj) 250 ml @ 0 mls/hr TITRATE IV Last administered on 09/21/16 10:20; Admin Dose 0 MLS/HR; Start 09/21/16 at 09:15; Stop 09/21/16 at 10:55; Status DC Influenza Virus Vaccine (Flu (Quadrivalent) Vaccine Inj) 0.5 ml ONCE ONCE IM; Start 09/22/16 at 09:00; Stop 09/22/16 at 09:01 IV Flush (NS Flush) 2 ml BID FLUSH Last administered on 09/21/16 21:06; Admin Dose 2 ML; Start 09/21/16 at 09:00 Lisinopril (Prinivil) 20 mg DAILY PO Last administered on 09/21/16 10:21; Admin Dose 20 MG; Start 09/21/16 at 09:00 Morphine Sulfate (Morphine Inj) 2 mg Q3H PRN IV PUSH; Start 09/21/16 at 10:00 Nitroglycerin (Nitrostat Sl) 0.4 mg Q5M PRN SL; Start 09/21/16 at 10:00 Potassium Chloride (KCl) 20 meq Q12HR PO Last administered on 09/21/16 21:06; Admin Dose 20 MEQ; Start 09/21/16 at 09:00 Regadenoson (Lexiscan Inj) 0.4 mg STK-MED ONCE .ROUTE Last administered on 13:22; Admin Dose 0.4 MG; Start 09/21/16 at 13:22; Stop 09/21/16 at 13:23; Status DC Tamsulosin HCl (Flomax) 0.4 mg HS PO Last administered on 09/21/16 21:06; Admin Dose 0.4 MG; Start 09/21/16 at 21:00 Triamterene/HCTZ (Dyazide 37.5-25 Mg) 1 cap DAILY PO Last administered on 10:20; Admin Dose 1 CAP; Start 09/21/16 at 09:00 Vital Signs / I&O Vital Signs Date Time Temp Pulse Resp B/P Pulse Ox O2 Delivery O2 Flow Rate FiO2 09/22/16 07:29 97.7 57 19 134/74 94 09/22/16 04:00 97.1 61 18 127/75 09/22/16 00:57 60 09/21/16 19:47 97.5 70 20 139/84 98 09/21/16 16:12 97.4 55 19 132/72 97 09/21/16 11:42 98.1 51 18 111/78 96 09/21/16 08:32 97.9 54 18 107/60 96 Physical Exam GENERAL: SKIN: Warm and dry. HEAD: Normocephalic. EYES: No scleral icterus. No injection or drainage. NECK: Supple, trachea midline. No JVD or lymphadenopathy. CARDIOVASCULAR: Regular rate and rhythm without murmurs, gallops, or rubs. RESPIRATORY: Breath sounds equal bilaterally. No accessory muscle use. GASTROINTESTINAL: Abdomen soft, non-tender, nondistended. MUSCULOSKELETAL: No cyanosis, or edema. BACK: Nontender without obvious deformity. No CVA tenderness. Laboratory Laboratory Tests Test 09/21/16 09/22/16 10:57 04:46 White Blood Count 5.8 TH/MM3 6.3 TH/MM3 Red Blood Count 4.79 MIL/MM3 4.99 MIL/MM3 Hemoglobin 14.2 GM/DL 14.4 GM/DL Hematocrit 40.0 % 41.8 % Mean Corpuscular Volume 83.4 FL 83.8 FL Mean Corpuscular Hemoglobin 29.6 PG 28.9 PG Mean Corpuscular Hemoglobin 35.5 % 34.5 % Concent Red Cell Distribution Width 13.8 % 13.7 % Platelet Count 203 TH/MM3 202 TH/MM3 Mean Platelet Volume 7.9 FL 7.8 FL Prothrombin Time 11.0 SEC Prothromb Time International 1.0 RATIO Ratio Activated Partial 57.8 SEC Thromboplast Time Total Creatine Kinase 72 U/L Troponin I LESS THAN 0.02 NG/ML Neutrophils (%) (Auto) 52.3 % Lymphocytes (%) (Auto) 28.7 % Monocytes (%) (Auto) 15.3 % Eosinophils (%) (Auto) 2.9 % Basophils (%) (Auto) 0.8 % Neutrophils # (Auto) 3.3 TH/MM3 Lymphocytes # (Auto) 1.8 TH/MM3 Monocytes # (Auto) 1.0 TH/MM3 Eosinophils # (Auto) 0.2 TH/MM3 Basophils # (Auto) 0.0 TH/MM3 CBC Comment DIFF FINAL Differential Comment Sodium Level 141 MEQ/L Potassium Level 3.2 MEQ/L Chloride Level 105 MEQ/L Carbon Dioxide Level 31.4 MEQ/L Anion Gap 5 MEQ/L Blood Urea Nitrogen 14 MG/DL Creatinine 0.96 MG/DL Estimat Glomerular Filtration 78 ML/MIN Rate Random Glucose 89 MG/DL Calcium Level 8.3 MG/DL Magnesium Level 2.1 MG/DL Triglycerides Level 69 MG/DL Cholesterol Level 136 MG/DL LDL Cholesterol 67 MG/DL HDL Cholesterol 54.8 MG/DL Cholesterol/HDL Ratio 2.48 RATIO Assessment and Plan Assessment and Plan CP - atypical symptoms. SPECT negative for ischemia. echo unremarkable. telemetry reviewed. no further bradycardia. I suspect it was vagal mediated. ok from cardio standpoint for DC FU with PCP Carmine,Jimenez Haney MD Sep 22, 2016 08:15
[2016-09-22] MEDS ORDERED: POTASSIUM CHLORIDE 20 MEQ CONTROLLED RELEASE TAB PO ONE (08:45)
[2016-09-22] MEDS ORDERED: INFLUENZA VIRUS VACCINE (QUADRIVALENT) 0.5 ML SYR IM ONE (09:00)
[2016-09-22] MEDS ORDERED: ASPIRIN EC 81 MG TABEC PO SCH (09:00)
[2016-09-22 10:11] LABS: AMPHETAMINE, URINE NEG (NEG); BARBITURATES, URINE NEG (NEG); COCAINE, URINE NEG (NEG)
[2016-09-22 10:13] LABS: BLOOD, URINE NEG (NEG); COMMENT (UR) CULT NOT INDICATED; CULTURE IF INDICATED CULT NOT INDICATED; GLUCOSE,URINE NEG (NEG); KETONE, URINE NEG (NEG); MUCUS URINE FEW /lpf (OCC); NITRITE,URINE NEG (NEG); PH, URINE 6.5 (5.0-8.5); URINE COLOR YELLOW (YELLW/STRAW)
[2016-09-22] MEDS: amLODIPine BESYLATE 5 MG TAB PO SCH (10:16)
[2016-09-22] MEDS: LISINOPRIL 20 MG TAB PO SCH (10:16)
[2016-09-22] MEDS: POTASSIUM CHLORIDE 20 MEQ CONTROLLED RELEASE TAB PO SCH (10:17)
[2016-09-22] MEDS: ATORVASTATIN 80 MG TAB PO SCH (10:17)
[2016-09-22] MEDS: TRIAMTERENE/HCTZ 37.5 MG/25 MG CAP PO SCH (10:18)
[2016-09-22] MEDS: SODIUM CHLORIDE 0.9% FLUSH 5 ML FLUSH FLUSH SCH (10:19)
[2016-09-22] MEDS: FINASTERIDE 5 MG TAB PO SCH (10:21)
--- NOTE | 2016-09-22 11:31 | HHI.PR ---
Subjective Remarks Follow-up for fatigue, shortness breath, chest pain. Patient reports feeling slightly better since arrival. Denies any further specific episodes of chest pains, however does have a discomfort at the left lower lateral rib cage which is reproducible with palpation. He has been ambulating to the restroom without difficulty, denies any significant shortness of breath. He is still concerned that he still does not have answers for his symptoms. He is concerned that as outpatient his blood pressure was in the 160s, however his blood pressure has been very well controlled since his arrival. He is also concerned about his fatigue, discussed getting evaluated for sleep apnea, patient is familiar with Dr. Porter as his has ARJUN, will refer as outpatient. Discussed extensively the results of his nuclear stress test and echocardiogram which were essentially unremarkable. Discussed he's been cleared for discharge by cardiology however Dr. Lou would like to continue the workup as outpatient with possible event monitor. The patient is inquiring about possibility of recurrent pulmonary embolism. Discussed with Dr. Cifuentes, will plan for CT-PA today, and if negative, he will be discharged home. Patient is understanding and agreeable with the plan and will follow up with cardiology/pulmonology as outpatient. Objective Vitals Vital Signs Date Time Temp Pulse Resp B/P Pulse Ox O2 Delivery O2 Flow Rate FiO2 09/22/16 07:29 97.7 57 19 134/74 94 09/22/16 04:00 97.1 61 18 127/75 09/22/16 00:57 60 09/21/16 19:47 97.5 70 20 139/84 98 09/21/16 16:12 97.4 55 19 132/72 97 09/21/16 11:42 98.1 51 18 111/78 96 Result Diagram: 09/22/16 0446 09/22/16 0446 Imaging Last Impressions Myocardial Perfusion Scan Nuc Med 09/21/16 0000 Signed Impressions: Service Date/Time: Wednesday, September 21, 2016 12:49 - CONCLUSION: 1. No areas of reversibility to suggest ischemia. 2. Matched defects within the inferior and inferoseptal mcconnell likely old infarcts. 3. Normal ejection fraction. RISK CATEGORY: Intermediate (1-3%% Annual Mortality Rate) Andreas Regan MD Chest X-Ray 09/20/16 2223 Signed Impressions: Service Date/Time: Tuesday, September 20, 2016 22:35 - CONCLUSION: Trace left base atelectasis. Agustin Parra MD Objective Remarks GENERAL: Well-nourished, well-developed male patient in NAD. Ambulating without difficulty. SKIN: Warm and dry. No rash. HEAD: Normocephalic. Atraumatic. EYES: Pupils equal and round. No scleral icterus. No injection or drainage. ENT: No nasal bleeding or discharge. Mucous membranes pink and moist. NECK: Supple. Trachea midline. CARDIOVASCULAR: Regular rate and rhythm. S1, S2 noted. No murmur appreciated. Left lower anterolateral chest wall tenderness to palpation. RESPIRATORY: No accessory muscle use. Clear to auscultation. Breath sounds equal bilaterally. GASTROINTESTINAL: Abdomen soft, non-tender, nondistended. Normoactive bowel sounds x4. MUSCULOSKELETAL: No obvious deformities. Extremities without clubbing, cyanosis , or edema. NEUROLOGICAL: Awake and alert. No obvious cranial nerve deficits. Motor grossly within normal limits. Normal speech. PSYCHIATRIC: Appropriate mood and affect; insight and judgment normal. Medications and IVs Current Medications Medications (Trade) Dose Ordered Sig/Silvia Route Start Time Stop Time Status Last Admin (Norvasc) 5 mg DAILY PO 09/21/16 09:00 09/22/16 10:16 (Prinivil) 20 mg DAILY PO 09/21/16 09:00 09/22/16 10:16 (Proscar) 5 mg DAILY PO 09/21/16 09:00 09/22/16 10:21 (KCl) 20 meq Q12HR PO 09/21/16 09:00 09/22/16 10:17 (Flomax) 0.4 mg HS PO 09/21/16 21:00 09/21/16 21:06 (Dyazide 37.5-25 Mg) 1 cap DAILY PO 09/21/16 09:00 09/22/16 10:18 (NS Flush) 2 ml UNSCH PRN FLUSH 09/21/16 01:45 (NS Flush) 2 ml BID FLUSH 09/21/16 09:00 09/22/16 10:19 (Narcan Inj) 0.4 mg UNSCH PRN IV 09/21/16 01:45 (Lipitor) 80 mg DAILY PO 09/21/16 09:15 09/22/16 10:17 (Ecotrin Ec) 81 mg DAILY PO 09/22/16 09:00 09/22/16 10:17 (Nitrostat Sl) 0.4 mg Q5M PRN SL 09/21/16 10:00 (Morphine Inj) 2 mg Q3H PRN IV PUSH 09/21/16 10:00 (Tylenol) 650 mg Q6H PRN PO 09/21/16 12:30 ([place] 5-325 Mg) 1 tab Q4H PRN PO 09/21/16 12:30 A/P Problem List: (1) Symptomatic bradycardia ICD Code: R00.1 Status: Acute (2) Unstable angina ICD Code: I20.0 Status: Acute Assessment and Plan 66-year-old male with history of Hypertension, Hypokalemia, Vitamin D Deficiency , Prostate Cancer, Bladder Cancer in remission, Pulmonary Embolism 2006, presents with a 7-10 day history of generalized weakness, fatigue, shortness of breath, dyspnea on exertion, and chest pressure. Fatigue: suspect related to symptomatic bradycardia and possible unstable angina. Given IVF bolus in the ER. CBC unremarkable. CMP with K 3.3, given KCl replacement. Check TSH. CXR unremarkable, images reviewed. Patient ambulating without difficulty. Recommend the patient f/up as outpatient with pulmonology for sleep study/PFTs and f/up with cardiology Dr. Lou. Symptomatic Bradycardia: HR into upper 30s-40s on telemetry. Patient is not on BB. TSH wnl. Monitor on telemetry. Consult cardiology, since patient's bradycardia only with rest/sleeping, and responds appropriately with elevated HR with activity, would not recommend pacemaker at this time. Plan to f/up as outpatient with Dr. Lou, consider event recorder. Atypical Chest Pain, possible Unstable Angina: no hx of CAD, cardiac cath 10years ago in [place] reportedly clean. Patient had relief of symptoms with Nitro/ Aspirin in the ED. CXR unremarkable, images reviewed. D-dimer negative.Ruled out ACS with negative serial cardiac enzymes and EKG without acute ST changes. Continue aspirin 81mg daily, nitro SL prn, IV morphine prn. Cannot have BB with bradycardia. Continue ACEi. Start statin, lipid panel wnl. Monitor on tele. S/p heparin drip, now d/c. Consult cardiology, appreciated Dr. Lou's assistance. Nuclear Stress Test with no areas of reversibility to suggest ischemia, possible old infarcts. Echo with EF 55-60%, grade 2 diastolic dysfunction. Patient cleared for discharge by Dr. Lou from cardiology standpoint. Shortness of Breath: possibly related to diastolic dysfunction seen on echo. D- dimer negative, however with hx of PE, will check CT-PA and plan to discharge if negative. Outpatient f/up with Pulmonology to consider PFTs and sleep study. Patient ambulating without difficulty, no [place], O2 stable on room air, RR wnl. Possible component of anxiety. Accelerated Hypertension: BP 183/85 upon arrival. Continue patient's ACEi, Norvasc, triamterene, HCTZ. Monitor BP and adjust antihypertensives as needed. BPH: hx of prostate cancer. Chronic. Continue patient's Proscar and Flomax. DVT Prophylaxis: d/c heparin drip. Ambulation. Discharge Planning Discussed thoroughly with the patient, Dr. Lou, and Dr. Cifuentes. I spent 35 minutes [id number] with the patient or on the lugo discussing the patient's disposition, prognosis, and plan of care with his caregivers. Over half the time spent was devoted to counseling the patient regarding placement in coordinating care with caregivers and case management. Discharge patient to home Condition on discharge: Improved Heart Healthy Diet as tolerated Ad Lynn activity Rx written: statin Follow-up with primary care physician, cardiology Dr. Lou, pulmonology Dr. Rosa Attending Statement The exam, history, and the medical decision-making described in the above note were completed with the assistance of the mid-level provider. I reviewed and agree with the findings presented. I attest that I had a [id number] encounter with the patient on the same day, and personally performed and documented my assessment and findings in the medical record.patient seen earlier today prior to discharge. Says he is feeling well. appears comfortable. Extensive discussion regarding results Selam Linares PA-C Sep 22, 2016 11:31 Jerry Cifuentes MD Sep 22, 2016 22:51
[2016-09-22] MEDS ORDERED: LIPI40TA PO (11:32)
[2016-09-22] MEDS ORDERED: ASPI81TA11 PO (11:32)
--- NOTE | 2016-09-22 11:33 | HHI.DCPOC ---
Discharge Care Plan Diagnosis: (1) Light headedness (2) Fatigue (3) Chest pain, rule out acute myocardial infarction (4) Bradycardia (5) Shortness of breath Your Health Problems Are: Shortness of Breath Goals to Promote Your Health * To prevent worsening of your condition and complications * To maintain your health at the optimal level Directions to Meet Your Goals Take your medications as prescribed Follow your dietary instruction Follow activity as directed Keep your appointments as scheduled Take your immunizations and boosters as scheduled If your symptoms worsen call your PCP, if no PCP go to Urgent Care Center or Emergency Room Smoking is Dangerous to Your Health. Avoid second hand smoke Call the 24-hour hour crisis hotline for domestic abuse at Selam Linares PA-C Sep 22, 2016 11:33
[2016-09-22 11:43] VITALS: BP 157/76; PULSE 66; RESP 20; TEMP 97.7; O2SAT 96
[2016-09-22] MEDS ORDERED: BENA20TA PO (12:14)
[2016-09-22] MEDS ORDERED: IOHEXOL 350 MG/ML 10 ML VIAL (for RAD DIAG) IV ONE (15:40)
--- NOTE | 2016-09-22 16:13 | RADRPT ---
EXAM DATE/TIME: 09/22/2016 15:41 [place] COMPARISON: No previous studies available for comparison. INDICATIONS : Chest pain and shortness of breath. IV CONTRAST: 75 cc Omnipaque 350 (iohexol) IV RADIATION DOSE: 23.43 CTDIvol (mGy) MEDICAL HISTORY : Hypertension. Cardiovascular disease Carcinoma, prostate. SURGICAL HISTORY : None. ENCOUNTER: Initial ACUITY: 1 day PAIN SCALE: 5/10 LOCATION: chest TECHNIQUE: Volumetric scanning of the chest was performed using a pulmonary embolism protocol MIP images were re constructed. Using automated exposure control and adjustment of the mA and/or kV according to patien t size, radiation dose was kept as low as reasonably achievable to obtain optimal diagnostic quality images. FINDINGS: PULMONARY ARTERIES: No filling defects are seen in the pulmonary arteries through the segmental level. LUNGS: There is no consolidation or pneumothorax . No concerning pulmonary nodule is visualized. PLEURAE: There is no pleural thickening or pleural effusion. MEDIASTINUM: There is good visualization of the great vessels of the middle mediastinum. No evidence of mediastin al or hilar adenopathy/mass. MUSCULOSKELETAL: Within normal limits for patient age. MISCELLANEOUS: Gallstones are noted CONCLUSION: No evidence of pulmonary embolism Agustin Holt MD on September 22, 2016 at 16:09 Board Certified Radiologist. This report was verified electronically.
--- NOTE | 2016-09-22 22:41 | EKG ---
Date Performed: 09/21/2016 Time Performed: 11:05:51 PTAGE: 66 years EKG: SINUS BRADYCARDIA BORDERLINE ECG Compared to prior tracing no significant change DOCTOR: Leo Castorena Interpretating Date/Time 09/22/2016 22:40:13
== END 2016-09-22 17:58 | disposition home or self-care (01) ==
LOC: NEPC 22:21 → NEDA 09-21 01:39 → INTOOBSV 09-21 01:39 → NEPGCP 09-21 02:52
PROVIDERS: ADMIT Internal Medicine; ATTEND Internal Medicine
DX: R00.1 Bradycardia, unspecified (principal); I20.0 Unstable angina; R53.1 Weakness; R06.02 Shortness of breath; R53.83 Other fatigue; R42 Dizziness and giddiness; I10 Essential (primary) hypertension; E87.6 Hypokalemia; E55.9 Vitamin D deficiency, unspecified; R51 Headache; Z85.46 Personal history of malignant neoplasm of prostate; Z86.711 Personal history of pulmonary embolism; Z85.51 Personal history of malignant neoplasm of bladder; Z79.82 Long term (current) use of aspirin; Z23 Encounter for immunization
CPT/HCPCS: 71010; 71275; 78452; 80048; 80061; 80076; 80307; 81001; 82550; 82552; 83690; 83735; 83880; 84443; 84484; 85025; 85027; 85379; 85610; 85730; 93005; 93017; 93306; 99285; A9502; G0378; J1644; J2785; J7040; Q2038; Q9967; 90471; 90686; G0008

== ENCOUNTER 2016-12-15 19:49 | Emergency (ER) | payer MEDICARE, OTHER ==
[~2016-12-15] VITALS: Ht 180.3 cm; Wt 96.0 kg
[~2016-12-15 19:49] MED LIST changes: -HYDR-3516 PO; -HYDR-3533 PO
[2016-12-15 20:02] VITALS: BP 168/95; PULSE 65; RESP 16; TEMP 98.2; O2SAT 97
[2016-12-15] MEDS ORDERED: HYDR-3516 PO (20:29)
[2016-12-15] MEDS ORDERED: HYDR-3533 PO ×2 (20:46→20:47)
--- NOTE | 2016-12-15 20:51 | PD ---
HPI Chief Complaint: Medication Refill Request Time Seen by Provider: 20:36 Travel History International Travel<30 days: No Contact w/Intl Traveler<30days: No Traveled to known affect area: No History of Present Illness HPI The patient 66. He has been taking Lortab for several years. He takes a due to fibromyalgia, scoliosis in addition to history of prostate cancer. A doctor in [place] typically calls in his prescription. For some reason he has been unable to do so today and was advised to come to the ER for evaluation. The patient has his prescription bottle with him with several tablets left. he states he takes about 1 tablet every day to every other day. PFSH Past Medical History Hx Anticoagulant Therapy: Yes (ASA) Heart Rhythm Problems: Yes (kellee) Cancer: Yes (BLADDER, prostate) Cardiovascular Problems: Yes (CATH>2006) High Cholesterol: No Chemotherapy: Yes Chest Pain: Yes Congestive Heart Failure: No Diminished Hearing: No Endocrine: No Genitourinary: No Hypertension: Yes Inguinal Hernia: Yes (WITH MESH) Musculoskeletal: Yes (arthritis, scoliosis) Neurologic: No Psychiatric: No Reproductive: Yes (prostate cancer) Respiratory: No Tetanus Vaccination: < 5 Years ?: Not Past Surgical History Appendectomy: Yes Body Medical Devices: ivc filter, wire in the left ear, mesh for hernia, pin in the right arm Other Surgery: Yes (IVC FILTER ) Social History Alcohol Use: No Tobacco Use: No Substance Use: No Allergies-Medications (Allergen,Severity, Reaction): Coded Allergies: No Known Allergies (Unverified , 12/15/16) Reported Meds & Prescriptions Reported Meds & Active Scripts Active Lortab (Hydrocodone-Acetaminophen) 5-325 Mg Tab 1 Tab PO BID PRN Benazepril (Benazepril HCl) 20 Mg Tab 20 Mg PO BID Aspirin EC (Aspirin) 81 Mg Tabdr 81 Mg PO DAILY Reported Hydrocodone-Acetaminophen 5-325 mg Tab 1 Tab PO Q6H PRN Klor-Con M20 (Potassium Chloride Microencaps) 20 Meq Tab 20 Meq PO Q12HR Finasteride 5 Mg Tab 5 Mg PO DAILY Do not crush. Tamsulosin (Tamsulosin HCl) 0.4 Mg Cap 0.4 Mg PO HS Triamterene-Hydrochlorothiazide 37.5-25 Mg Cap 1 Cap PO DAILY Amlodipine (Amlodipine Besylate) 5 Mg Tab 5 Mg PO DAILY Review of Systems General / Constitutional: No: Fever Physical Exam Narrative GENERAL: 66-year-old male well-nourished well-developed SKIN: Focused skin assessment warm/dry. HEAD: Atraumatic. Normocephalic. EYES: Pupils equal and round. No scleral icterus. No injection or drainage. MUSCULOSKELETAL: No obvious deformities. No clubbing. No cyanosis. No edema. NEUROLOGICAL: Awake and alert. No obvious cranial nerve deficits. Motor grossly within normal limits. Normal speech. PSYCHIATRIC: Appropriate mood and affect; insight and judgment normal. Data Data Last Documented VS Vital Signs Date Time Temp Pulse Resp B/P Pulse Ox O2 Delivery O2 Flow Rate FiO2 12/15/16 20:02 98.2 65 16 168/95 97 Vital signs reviewed MDM Medical Decision Making Medical Screen Exam Complete: Yes Emergency Medical Condition: Yes Differential Diagnosis Medication refill, chronic pain, acute on chronic pain Narrative Course The patient states he is here specifically for a medication refill. He has no other medical complaint. He has put forth a reasonable effort to obtain his prescription prior to coming to the ER. He is transparent with his medical records and additionally brings his Lortab prescription within with multiple tablets left. We'll provide the patient with a short course/refill and follow- up instructions such that he may find a provider in the community. He is agreeable with plan. Of note the pain medication is used for chronic conditions including scoliosis and fibromyalgia. Diagnosis Primary Impression: Chronic pain Qualified Code: G89.29 - Other chronic pain Additional Impressions: Scoliosis Qualified Code: M41.9 - Scoliosis of thoracolumbar spine, unspecified scoliosis type Fibromyalgia Referrals: DR PETERSON call for appointment Wicho Christina MD call for appointment Additional Instructions: You have a choice when it comes to health care, and we are glad that you chose [facility]. Hopefully, we have met your expectations on today's visit. You are welcome to return to [facility] at any time, as we are committed to meeting the health care needs of our community. Med/Other Pt SpecificInfo: Prescription(s) given Scripts Hydrocodone-Acetaminophen (Lortab)5-325 Mg Tab1 Tab PO BID PRN (PAIN) #30 TAB Ref 0 Prov:Prince Genao MD 12/15/16 Disposition: 01 DISCHARGE HOME Condition: Stable Prince Genao MD December 15, 2016 20:51
== END 2016-12-15 21:06 | disposition home or self-care (01) ==
LOC: PHEFT 19:49
DX: M79.7 Fibromyalgia (principal); M41.9 Scoliosis, unspecified; I10 Essential (primary) hypertension; G89.29 Other chronic pain; Z76.0 Encounter for issue of repeat prescription; Z85.46 Personal history of malignant neoplasm of prostate
CPT/HCPCS: 99281